=== PATIENT | male | born 1980 | race Caucasian/White ===

== ENCOUNTER 2021-01-07 06:45 | Emergency (ER) | payer MEDICAID, MEDICARE ==
[~2021-01-07] VITALS: Ht 182.9 cm; Wt 72.6 kg
[2021-01-07 06:45] VITALS: BP 155/100
[~2021-01-07 06:45] MED LIST: BUPR150T4 PO; HYDR-3974 PO; HYDR25TA4 PO; LISI-768 PO; LORA2TAB PO; RISP0.5T65 PO; ZOLP10TA2 PO
--- NOTE | 2021-01-07 06:54 | NUR ---
DR SANTILLAN ASSESSING THE PT
[2021-01-07] MEDS ORDERED: KETOROLAC TROMETHAMINE INJ 30 MG/ML VIAL IM ONE (07:00)
[2021-01-07] MEDS ORDERED: KETOROLAC TROMETHAMINE INJ 30 MG/ML VIAL ONE (07:00)
[2021-01-07] MEDS ORDERED: CLIN300C12 PO (07:41)
--- NOTE | 2021-01-07 07:51 | NUR ---
Patient discharged to home in stable condition. Written and verbal after care instructions given. Patient verbalizes understanding of instruction.
== END 2021-01-07 07:52 | disposition home or self-care (01) ==
LOC: ER 07:24
DX: L03.011 Cellulitis of right finger (principal); I10 Essential (primary) hypertension; F41.9 Anxiety disorder, unspecified; F20.9 Schizophrenia, unspecified; G47.00 Insomnia, unspecified; F17.200 Nicotine dependence, unspecified, uncomplicated; Z88.0 Allergy status to penicillin; Z79.899 Other long term (current) drug therapy
CPT/HCPCS: 73130; 96372; 99283; J1885